=== PATIENT | female | born 1935 ===

== ENCOUNTER 2017-12-01 08:51 | Outpatient (CLI) | payer OTHER | END 2017-12-01 08:54 | disposition home or self-care (01) | LOC: SONOGRAMA 08:51 | DX: E04.1 Nontoxic single thyroid nodule (principal) ==

== ENCOUNTER 2020-05-17 08:39 | Emergency (ER) | payer OTHER ==
[~2020-05-17] VITALS: Ht 157.5 cm; Wt 52.2 kg
[2020-05-17] MEDS ORDERED: DEXILANT30 MG (08:56)
[2020-05-17] MEDS ORDERED: SIMVASTATIN5 MG (08:56)
[2020-05-17] MEDS ORDERED: TOPROL XL25 M1 (08:56)
[2020-05-17] MEDS ORDERED: NAMENDA5 MG PO (08:57)
[2020-05-17] MEDS ORDERED: CYMBALTA20 MG (08:57)
== END 2020-05-18 02:25 | disposition home or self-care (01) ==
LOC: ER 08:39
DX: E87.6 Hypokalemia (principal); E86.0 Dehydration; R53.1 Weakness; Z03.818 Encounter for observation for suspected exposure to other biological agents ruled out

== ENCOUNTER 2020-05-21 11:35 | Inpatient (IN) | payer OTHER ==
[~2020-05-21] VITALS: Ht 152.4 cm; Wt 45.4 kg
[~2020-05-21 11:35] MED LIST: CYMBALTA20 MG; DEXILANT30 MG; NAMENDA5 MG PO; SIMVASTATIN5 MG; TOPROL XL25 M1
[2020-05-23] MEDS ORDERED: MONTELUKAST SOD10 MG (09:55)
[2020-05-23] MEDS ORDERED: DULOXETINE HCL40 MG (09:55)
[2020-05-23] MEDS ORDERED: ESOMEPRAZOLE MA40 MG (09:56)
[2020-05-23] MEDS ORDERED: ATORVASTATIN CA10 MG (09:56)
[2020-05-23] MEDS ORDERED: SIMVASTATIN40 MG PO (09:57)
[2020-06-10] MEDS ORDERED: ELIQUIS2.5 MG PO (09:18)
[2020-06-10] MEDS ORDERED: SIMVASTATIN10 MG PO (09:18)
[2020-06-10] MEDS ORDERED: CYMBALTA30 MG PO (09:19)
[2020-06-10] MEDS ORDERED: FAMOTIDINE40 MG PO (09:21)
[2020-06-10] MEDS ORDERED: LEVOTHYROXINE25 MCG PO (09:21)
[2020-06-10] MEDS ORDERED: NAMENDA5 MG PO (09:21)
[2020-06-10] MEDS ORDERED: PROTONIX40 MG PO (09:22)
== END 2020-06-10 13:47 | disposition home or self-care (01) | DRG 329 ==
LOC: ER 11:35 → MEDI 05-22 10:41
PROVIDERS: Surgery; ADMIT Internal Medicine; ATTEND Internal Medicine
PROC: 4A12X4Z Monitoring of Cardiac Electrical Activity, External Approach (ICD-10-PCS; 2020-05-22)
PROC: BW2110Z Computerized Tomography (CT Scan) of Abdomen and Pelvis using Low Osmolar Contrast, Unenhanced and Enhanced (ICD-10-PCS; 2020-05-22)
PROC: 02HV33Z Insertion of Infusion Device into Superior Vena Cava, Percutaneous Approach (ICD-10-PCS; 2020-05-23)
PROC: 8E0ZXY6 Isolation (ICD-10-PCS; 2020-05-27)
PROC: B24BZZZ Ultrasonography of Heart with Aorta (ICD-10-PCS; 2020-05-27)
PROC: 05H633Z Insertion of Infusion Device into Left Subclavian Vein, Percutaneous Approach (ICD-10-PCS; 2020-05-30)
PROC: 3E0F7SF Introduction of Other Gas into Respiratory Tract, Via Natural or Artificial Opening (ICD-10-PCS; 2020-05-30)
PROC: 0DB80ZZ Excision of Small Intestine, Open Approach (ICD-10-PCS; principal; 2020-05-30 09:15)
PROC: B44GZZZ Ultrasonography of Left Lower Extremity Arteries (ICD-10-PCS; 2020-06-02)
PROC: 30233N1 Transfusion of Nonautologous Red Blood Cells into Peripheral Vein, Percutaneous Approach (ICD-10-PCS; 2020-06-04)
DX: K56.690 Other partial intestinal obstruction (principal); A41.89 Other specified sepsis; A04.72 Enterocolitis due to Clostridium difficile, not specified as recurrent; E87.2 Acidosis; E46 Unspecified protein-calorie malnutrition; K92.1 Melena; D72.828 Other elevated white blood cell count; E87.6 Hypokalemia; E86.0 Dehydration; E78.49 Other hyperlipidemia; I10 Essential (primary) hypertension; F03.90 Unspecified dementia, unspecified severity, without behavioral disturbance, psychotic disturbance, mood disturbance, and anxiety; R10.9 Unspecified abdominal pain; E88.09 Other disorders of plasma-protein metabolism, not elsewhere classified; I70.292 Other atherosclerosis of native arteries of extremities, left leg; D64.9 Anemia, unspecified; D69.6 Thrombocytopenia, unspecified; Z20.822 Contact with and (suspected) exposure to COVID-19

== ENCOUNTER 2020-06-25 10:43 | Emergency (ER) | payer OTHER ==
[~2020-06-25] VITALS: Ht 160 cm; Wt 54.4 kg
[~2020-06-25 10:43] MED LIST changes: +ATORVASTATIN CA10 MG; +CYMBALTA30 MG PO; +DULOXETINE HCL40 MG; +ELIQUIS2.5 MG PO; +ESOMEPRAZOLE MA40 MG; +FAMOTIDINE40 MG PO; +LEVOTHYROXINE25 MCG PO; +MONTELUKAST SOD10 MG; +PROTONIX40 MG PO; +SIMVASTATIN10 MG PO; +SIMVASTATIN40 MG PO
== END 2020-06-25 22:46 | disposition home or self-care (01) ==
LOC: ER 10:43
DX: I73.89 Other specified peripheral vascular diseases (principal); I96 Gangrene, not elsewhere classified; M79.672 Pain in left foot; E78.5 Hyperlipidemia, unspecified; I10 Essential (primary) hypertension; F03.90 Unspecified dementia, unspecified severity, without behavioral disturbance, psychotic disturbance, mood disturbance, and anxiety; E03.8 Other specified hypothyroidism